=== PATIENT | male | born 1965 | race African-American/Black ===

== ENCOUNTER 2017-03-17 17:31 | Emergency (ER) | payer OTHER ==
[~2017-03-17] VITALS: Ht 165.1 cm; Wt 84.5 kg
[~2017-03-17 17:31] MED LIST: AMOXICILLIN500 MG PO; ANTIVERT25 MG PO; FLEXERIL10 MG PO; INDOCIN25 MG PO; MEDROL DOSEPAK4 MG PO; MOTRIN800 MG PO; NAPROSYN500 MG PO; NOHOMEMEDS; NORCO 5/3251 TABLET PO; NORCO 7.5/321 TABLET PO; PEN-VEE K,VEET500 MG PO; PERCOCET 5/31 TABLET PO; PHENERGAN-CODE120 ML PO; PREDNISONE10 M1 PO; PREDNISONE10 MG PO; ULTRAM50 MG PO; VALIUM5 MG PO; ZITHROMAX Z-PA250 MG PO
[2017-03-17 19:21] LABS: ADD MIUA? YES; BILIRUBIN NEGATIVE; BLOOD SMALL; COLOR YELLOW ((YELLOW)); GLUCOSE (STRIP) NEGATIVE; KETONES NEGATIVE; LEUKOCYTES NEGATIVE; NITRITE NEGATIVE; PROTEIN (STRIP) NEGATIVE; SPECIFIC GRAVITY 1.024 (1.000-1.030); UROBILINOGEN 0.2 MG/DL (0.2-1.0)
[2017-03-17 19:28] LABS: BACTERIA RARE /HPF; EPITHELIAL CELLS RARE /HPF; HYALINE CASTS 0-5 /LPF; MUCUS TRACE /LPF; RED BLOOD CELLS 0-5 /HPF (0-5); UCUL ADDED? NO; WHITE BLOOD CELLS 0-5 /HPF (0-5)
[2017-03-17] MEDS ORDERED: NAPROSYN500 MG PO (20:33)
[2017-03-17] MEDS ORDERED: SKELAXIN800 MG PO (20:33)
[2017-03-17] MEDS ORDERED: NORCO 5/3251 TABLET PO (20:33)
[2017-03-17 20:38] VITALS: BP 118/84
== END 2017-03-17 20:38 | disposition home or self-care (01) ==
LOC: EME 17:31 → RME 17:31
PROVIDERS: Physician Assistant
DX: R10.31 Right lower quadrant pain (principal); K21.9 Gastro-esophageal reflux disease without esophagitis; F17.200 Nicotine dependence, unspecified, uncomplicated
CPT/HCPCS: 76870; 81003; 99281; 99284; J1885

== ENCOUNTER 2017-03-21 18:52 | Emergency (ER) | payer OTHER ==
[~2017-03-21] VITALS: Ht 167.6 cm; Wt 84.9 kg
[~2017-03-21 18:52] MED LIST changes: +SKELAXIN800 MG PO
[2017-03-21] MEDS ORDERED: PERCOCET 5/31 TABLET PO (22:11)
[2017-03-21] MEDS ORDERED: MEDROL DOSEPAK4 MG PO (22:11)
[2017-03-21 22:21] VITALS: BP 137/88
== END 2017-03-21 22:27 | disposition home or self-care (01) ==
LOC: EME 18:52
DX: M25.551 Pain in right hip (principal); R10.31 Right lower quadrant pain; M79.604 Pain in right leg; K21.9 Gastro-esophageal reflux disease without esophagitis; F17.200 Nicotine dependence, unspecified, uncomplicated
CPT/HCPCS: 73502; 99281; 99284; J7512

== ENCOUNTER 2017-06-30 05:29 | Emergency (ER) | payer OTHER ==
[~2017-06-30] VITALS: Ht 167.6 cm; Wt 87.7 kg
[2017-06-30] MEDS ORDERED: NORCO 5/3251 TABLET PO (05:46)
[2017-06-30] MEDS ORDERED: PEN-VEE K,VEET500 MG PO (05:46)
[2017-06-30 06:05] VITALS: BP 134/90
== END 2017-06-30 06:06 | disposition home or self-care (01) ==
LOC: EME 05:29
PROC: 3E0T3BZ Introduction of Anesthetic Agent into Peripheral Nerves and Plexi, Percutaneous Approach (ICD-10-PCS; principal; 2017-06-30)
DX: K04.7 Periapical abscess without sinus (principal); K02.9 Dental caries, unspecified
CPT/HCPCS: 99281; 99283

== ENCOUNTER 2017-08-05 04:54 | Emergency (ER) | payer OTHER ==
[~2017-08-05] VITALS: Ht 165.1 cm; Wt 87.2 kg
[2017-08-05 04:56] VITALS: BP 126/100
[2017-08-05] MEDS ORDERED: NORCO 5/3251 TABLET PO (07:48)
[2017-08-05] MEDS ORDERED: PEN-VEE K,VEET500 MG PO (07:48)
== END 2017-08-05 08:08 | disposition home or self-care (01) ==
LOC: EME 04:54
DX: K02.9 Dental caries, unspecified (principal); K04.7 Periapical abscess without sinus; H92.01 Otalgia, right ear; K03.81 Cracked tooth
CPT/HCPCS: 99281; 99284

== ENCOUNTER 2017-09-03 13:05 | Emergency (ER) | payer OTHER ==
[~2017-09-03] VITALS: Ht 165.1 cm; Wt 83.0 kg
[2017-09-03 14:27] LABS: BASOPHIL (%) 0.5 % (0-1); EOSINOPHIL (%) 0.8 % (0-5); HEMATOCRIT 43.8 % (38.0-50.0); HEMOGLOBIN 15.4 G/DL (12.5-16.6); IMMATURE GRANULOCYTE (%) 0.3 % (0.0-0.7); LYMPHOCYTE (%) 43.5 % (15-42); LYMPHOCYTE COUNT 1.7 K/uL (1.0-2.8); MCH 31.2 PG (29.0-34.0); MCHC 35.2 G/DL (30.0-36.0); MCV 88.8 FL (86-99); MONOCYTE COUNT 0.2 K/uL (0-0.8); NEUTROPHIL (%) 48.9 % (45-76); NEUTROPHIL COUNT 1.9 K/uL (1.8-6.4); PLATELET COUNT 282 K/uL (156-360); RBC DIS.WIDTH-CV 12.1 % (11.8-14.6); RBC DIS.WIDTH-SD 39.4 % (39-53); RED BLOOD COUNT 4.93 M/uL (4.00-5.50); WHITE BLOOD COUNT 3.8 K/uL (4.1-10.2)
[2017-09-03 14:36] LABS: CHLORIDE 105 mEq/L (99-109); POTASSIUM 3.5 mEq/L (3.7-5.4); SODIUM 136 mEq/L (136-147)
[2017-09-03 14:37] LABS: GLUCOSE 108 mg/dL (70-99)
[2017-09-03 14:41] LABS: CREATININE 0.8 mg/dL (0.6-1.3); GFR ESTIMATE (CALCULATED) > 59 mL/min/ (58.99-99999)
[2017-09-03 14:42] LABS: UREA NITROGEN (BUN) 10 mg/dL (9-23)
[2017-09-03] MEDS ORDERED: NAPROXEN500 MG PO (16:52)
[2017-09-03 17:19] VITALS: BP 119/89
[2017-09-03 17:47] LABS: APPEARANCE CLEAR ((CLEAR)); BILIRUBIN NEGATIVE; BLOOD NEGATIVE; COLOR YELLOW ((YELLOW)); GLUCOSE (STRIP) NEGATIVE; KETONES NEGATIVE; LEUKOCYTES NEGATIVE; NITRITE NEGATIVE; PROTEIN (STRIP) NEGATIVE; UCUL ADDED? NO; UROBILINOGEN 0.2 MG/DL (0.2-1.0)
[2017-09-03 18:05] LABS: SPECIFIC GRAVITY 1.097 (1.000-1.030)
== END 2017-09-03 17:21 | disposition home or self-care (01) ==
LOC: EME 13:05
PROVIDERS: Physician Assistant
DX: S39.011A Strain of muscle, fascia and tendon of abdomen, initial encounter (principal); N43.3 Hydrocele, unspecified; X50.0XXA Overexertion from strenuous movement or load, initial encounter; Y93.89 Activity, other specified; K21.9 Gastro-esophageal reflux disease without esophagitis
CPT/HCPCS: 74177; 76870; 80048; 81003; 85025; 99281; 99285; J1885; J3010; J7120

== ENCOUNTER 2017-09-06 21:52 | Emergency (ER) | payer OTHER ==
[~2017-09-06] VITALS: Ht 165.1 cm; Wt 83.1 kg
[~2017-09-06 21:52] MED LIST changes: +NAPROXEN500 MG PO
[2017-09-07] MEDS ORDERED: NEURONTIN300 MG PO (02:08)
[2017-09-07] MEDS ORDERED: NORCO 5/3251 TABLET PO (02:08)
[2017-09-07 02:51] VITALS: BP 149/100
== END 2017-09-07 02:55 | disposition home or self-care (01) ==
LOC: EXP 21:52 → EME 21:52 → EXP 09-07 02:55
DX: R10.31 Right lower quadrant pain (principal); S39.011D Strain of muscle, fascia and tendon of abdomen, subsequent encounter; X50.0XXD Overexertion from strenuous movement or load, subsequent encounter; K21.9 Gastro-esophageal reflux disease without esophagitis
CPT/HCPCS: 99281; 99284